=== PATIENT | female | born 1960 | race Caucasian/White ===

== ENCOUNTER → 2017-10-10 10:40 | Outpatient (CLI) | payer OTHER, SELFPAY ==
[2017-10-10 12:48] LABS: Calcium 9.5 mg/dL (8.4-10.2); Phosphorous 3.8 mg/dL (2.5-4.5)
[2017-10-10 13:05] LABS: Vitamin D 25 Hydroxy (D3) 59.8 ng/mL (30.0-100.0)
[2017-10-14 13:03] LABS: Parathyroid Hormone Int 23 pg/mL (14-64)
== END ==
PROVIDERS: PCP Physician Assistant; Visit Provider Internal Medicine Endocrinology, Diabetes & Metabolism
DX: E21.3 Hyperparathyroidism, unspecified (principal)
CPT/HCPCS: 36415; 82306; 82310; 83970; 84100

== ENCOUNTER 2020-03-08 01:43 | Observation (INO) | payer OTHER, SELFPAY ==
[2020-03-08] VITALS (21 sets, daily range): BP systolic 111–154; BP diastolic 65–83; PULSE 78–92; RESP 11–43; TEMP 36.3–37.3; O2SAT 97–100; BMI 20.7; BMI 21.6
--- NOTE | 2020-03-08 01:59 | ED_ITS ---
HPI - Overdose General Chief Complaint: Toxicology Problem Stated Complaint: Overdose Time Seen by Provider: 03/08/20 01:45 Source: patient and EMS Mode of arrival: EMS Limitations: no limitations History of Present Illness HPI Narrative: 59-year-old female former smoker with history of depression, chronic pain and prior suicide attempt presents by EMS and a chief complaint of suicidal ideation with attempt. The patient's family was attempting to discuss her alcohol and mental health problems in a sort of intervention tonight and it was poorly received. Per the police affit lydia / [place] she became upset and felt that her family did not lover her, did not respect her, and did not realize how much she has done for them. PD were called at 2329 to intervene. They left after the initial interaction but were called back at 0107 because the patient had made a suicide attempt and locked herself in her room. Somewhere between midnight and 12 30 this evening (nearly 2 hours ago) she took upwards of 70 pills of gabapentin 100 mg nearly all at once and attempt to commit suicide. She had a small amount of wine earlier in the night but denies the ingestion of other medications. She had a suicide attempt about 3 years ago. She lives at home with her . She does not have a therapist, psychologist or psy chiatrist. She is currently feeling a bit somnolent but largely okay. complaint: intentional overdose Onset (ago): hour(s) Intent: suicide attempt Associated symptoms: depression Treatments Prior to Arrival: none Related Data Home Medications Medication Instructions Recorded Confirmed [GUAIFENESIN ER] 2,400 - 3,600 mg PO PRN PRN #0 06/30/17 03/01/20 [COMPLETE OMEGA] 1 cap PO QDAY #0 09/21/17 03/01/20 [DHEA] 100 mg PO QDAY #0 09/21/17 03/01/20 [FREE AMINOS] 1 cap PO QDAY #0 09/21/17 03/01/20 [HUMANOFORT] 100 mg PO QDAY #0 09/21/17 03/01/20 [IODURAL] 50 mg PO QDAY #0 09/21/17 03/01/20 [L-TRYPTOPHAN] 1.6 mg PO QDAY #0 09/21/17 03/01/20 [PREGNENOLONE] 100 mg PO QDAY #0 09/21/17 03/01/20 [VITAMIN B COMPLEX] 1 tab PO QDAY #0 09/21/17 03/01/20 diphenhydramine HCl 25 mg capsule 50 mg PO BEDTIME cap 03/01/20 03/01/20 Previous Rx's Medication Instructions Recorded [ESTRO GEL] 0.06 % TOPICAL QDAY #150 gm 06/30/17 bupropion HCl 150 mg tablet,12 hr 150 mg PO BID #180 tab 03/01/20 sustained-release estradiol 0.1 mg/24 hr semiweekly See Rx Instructions .ROUTE 03/01/20 transdermal patch .COMPLEX #24 each gabapentin 100 mg capsule 100 mg PO TID #270 cap 03/01/20 progesterone micronized 100 mg 100 mg PO HS #90 cap 03/01/20 capsule valacyclovir 500 mg tablet 500 mg PO BID #180 tab 03/01/20 venlafaxine 150 mg 150 mg PO DAILY #90 cap 03/01/20 capsule,extended release 24 hr Allergies Allergy/AdvReac Type Severity Reaction Status Date / Time cephalexin [CEPHALEXIN] AdvReac Mild HALLUCINATI Verified 07/13/18 13:50 ONS Review of Systems Constitutional Constitutional: Denies chills, Denies fatigue, Denies fever(s), Denies frequent falls, Denies lethargy and Denies weakness Comments: Tired Eyes Eyes: Denies change in vision, Denies eye discharge, Denies irritation and Denies loss of vision ENT Ears, Nose, Mouth, and Throat: Denies change in voice, Denies dizziness, Denies neck pain, Denies sore throat and Denies throat swelling Cardiovascular Cardiovascular: Denies chest pain, Denies irregular heart rhythm, Denies lightheadedness, Denies palpitations, Denies dyspnea, Denies dyspnea on exertion and Denies orthopnea Respiratory Respiratory: Denies cough, Denies dyspnea, Denies dyspnea on exertion and Denies wheezing Gastrointestinal Gastrointestinal: Denies abdominal pain, Denies change in bowel habits, Denies diarrhea, Denies nausea and Denies vomiting Musculoskeletal Musculoskeletal: Denies neck pain and Denies numbness Integumentary/Breasts Skin/Breast: Denies pruritus, Denies erythema, Denies rash and Denies wounds Neurologic Neurologic: Denies behavioral changes, Denies confusion, Denies dizziness, Denies frequent falls, Denies loss of vision, Denies numbness and Denies weakness Psychiatric Psychiatric: Denies anxiety, Denies behavioral changes, Denies confusion, Denies depression, Denies homicidal ideation and Denies suicidal ideation Endocrine Endocrine: Denies fatigue, Denies flushing and Denies palpitations Hematologic/Lymphatic Hematologic/Lymphatic: Denies easy bruising Allergic/Immunologic Allergic/Immunologic: Denies urticaria, Denies throat swelling and Denies wh eezing Patient History Medical History Depression (Chronic) Fibromyalgia (Chronic) Fibromyalgia (Acute) History of suicide attempt (Chronic) Other insomnia (Chronic) Sleep apnea (Acute) Surgical History History of breast augmentation Status post delivery Status post hysterectomy Status post tonsillectomy and adenoidectomy Family History Mother History of rheumatoid arthritis History of hypertension History of hypothyroidism Social History Smoking Status: Former smoker (quit in 2017) Smoking Status: Former smoker (quit in 2017) alcohol intake frequency: a few times a week Substance Use Type: does not use Exam Narrative Exam Narrative: GENERAL: [59] year old patient appears stated age. Well- nourished, well-developed patient, in mild distress. HEAD: Atraumatic. Normocephalic. EYES: Pupils equal round and reactive. Extraocular motions intact. No scleral icterus. No injection or drainage. ENT: Nose without bleeding, purulent drainage. Throat without erythema, tonsillar hypertrophy or exudate. Airway patent. NECK: Trachea midline. Non tender CARDIOVASCULAR: Regular rate and rhythm without murmurs, gallops, or rubs. RESPIRATORY: Clear to auscultation. Breath sounds equal bilaterally. No wheezes, rales, or rhonchi. GASTROINTESTINAL: Abdomen soft, non-tender, nondistended. EXTREMITIES: No edema or joint tenderness. BACK: Nontender without deformity or crepitance. No flank tenderness. NEURO: AOx3. SKIN: No rash or erythema of visible areas Initial Vital Signs Initial Vital Signs: Vital Signs Temperature 98.7 F 03/08/20 01:40 Pulse Rate 85 03/08/20 01:40 Respiratory Rate 15 10/22/20 01:40 Blood Pressure 137/79 03/08/20 01:40 Pulse Oximetry 99 03/08/20 01:40 Course Orders Ordered: ED Orders 03/08/20 EKG-12 Lead Stat 03/08/20 02:15 Acetaminophen Stat Complete Blood Count AUTO DIFF Stat Comprehensive Metabolic Panel Stat Ethanol (ETOH) Stat Hepatic (Liver) Panel Stat Lactate (Lactic Acid) Stat Salicylate Stat 03/08/20 02:35 Urine Drug Screen, Rapid Stat 03/08/20 03:30 COVID19 -ED/INPAT/OR/L&D Stat Sodium Chloride (Normal Saline 0.9%) 1,000 mls @ 150 mls/hr IV CONT RIZWAN Last Admin: 03/08/20 02:48 Dose: 150 mls/hr Documented by: ALESIA Discontinued Medications Charcoal/Sorbitol (Actidose) 50 gm PO NOW ONE Stop: 03/08/20 01:37 Last Admin: 03/08/20 03:06 Dose: Not Given Documented by: JONATHAN Consultations Consultation #1: Call to poison Control. Given her current ingestion of gabapentin 7100 mg and the possible involvement of venlafaxine and bupropion they recommend observation for 24 hours to monitor for QT prolongation, somnolence and possibly seizures. After which she can be medically cleared and assessed by mental health. They agree the patient is outside of the window for charcoal administration and recommend supportive care in the meantime. Vital Signs Vital signs: Vital Signs - 8 hr 03/08/20 01:40 03/08/20 02:09 03/08/20 02:15 Temperature 98.7 F Pulse Rate 85 85 83 Respiratory Rate 15 11 L 13 Blood Pressure 137/79 137/79 137/83 Pulse Oximetry 99 100 100 03/08/20 02:30 03/08/20 02:39 03/08/20 02:45 Temperature Pulse Rate 82 84 85 Respiratory Rate 21 18 14 Blood Pressure 131/81 135/79 131/81 Pulse Oximetry 100 100 99 03/08/20 03:00 03/08/20 03:01 03/08/20 03:16 Temperature Pulse Rate 86 87 92 H Respiratory Rate 31 H 28 H 40 H Blood Pressure 135/66 137/70 Pulse Oximetry 100 99 99 MDM - Overdose Lab Data Result diagrams: 03/08/20 02:15 03/08/20 02:15 Labs: Lab Results 03/08/20 03/08/20 03/08/20 Range/Units 02:15 02:15 02:15 WBC 4.6 (4.5-11.0) X10^3/uL RBC 3.57 L (4.0-5.2) X10^6/uL Hgb 12.4 (12.0-16.0) g/dL Hct 37.2 (36-46) % MCV 104.2 H (80-100) fL MCH 34.6 H (26-34) PG MCHC 33.2 (30-36) % RDW 14.0 (11.6-14.8) % Plt Count 264 (150-400) X10^3/uL Neut % (Auto) 52.8 (50-75) % Lymph % (Auto) 21.4 L (25-40) % [place] % (Auto) 16.8 H (3-14) % Eos % (Auto) 7.9 H (2-4) % Baso % (Auto) 1.1 (0-2) % Neut # (Auto) 2400 (3937-6254) /uL Lymph # (Auto) 1000 L (0902-9248) /uL [place] # (Auto) 800 (0-900) /uL Eos # (Auto) 400 (0-450) /uL Baso # (Auto) 100 (0-100) /uL Sodium 140 (137-145) mmol/L Potassium 4.2 (3.4-5.1) mmol/L Chloride 106 (98-107) mmol/L Carbon Dioxide 24 (22-32) mmol/L BUN 9 (7-17) mg/dL Creatinine 0.82 (0.52-1.04) mg/dL Estimated GFR > 60.0 (>60) mL/min BUN/Creatinine Ratio 11.0 (6-22) Glucose 105 (80-110) mg/dL Lactate 1.0 (0.7-2.1) mmol/L Calcium 8.7 (8.4-10.2) mg/dL Total Bilirubin 0.3 (0.2-1.3) mg/dL Conjugated Bilirubin 0.0 (0.0-0.3) md/dL Unconjugated Bilirubin 0.0 (0.0-1.1) mg/dL AST 51 H (14-36) IU/L ALT 39 H (<35) IU/L Alkaline Phosphatase 56 (38-126) U/L Total Protein 7.4 (6.3-8.2) g/dL Albumin 4.5 (3.5-5.0) g/dL Globulin 2.9 (1.7-4.1) g/dL Albumin/Globulin Ratio 1.6 (1.0-2.8) Salicylates < 1.0 (<20) mg/dL U Opiates 300ng/mL cut (Negative) Ur Oxycodone Screen (Negative) Urine Methadone Screen (Negative) Acetaminophen < 10 L (10-30) ug/mL Ur Barbiturates Screen (Negative) U Tricyclic Antidepress (Negative) Ur Phencyclidine Scrn (Negative) Ur Amphetamines Screen (Negative) U Methamphetamines Scrn (Negative) Ur MDMA Scrn (Ecstasy) (Negative) U Benzodiazepines Scrn (Negative) Urine Cocaine Screen (Negative) U Marijuana (THC) Screen (Negative) Ethyl Alcohol 168 H ( - 10) mg/dL 03/08/20 Range/Units 02:35 WBC (4.5-11.0) X10^3/uL RBC (4.0-5.2) X10^6/uL Hgb (12.0-16.0) g/dL Hct (36-46) % MCV (80-100) fL MCH (26-34) PG MCHC (30-36) % RDW (11.6-14.8) % Plt Count (150-400) X10^3/uL Neut % (Auto) (50-75) % Lymph % (Auto) (25-40) % [place] % (Auto) (3-14) % Eos % (Auto) (2-4) % Baso % (Auto) (0-2) % Neut # (Auto) (5814-9116) /uL Lymph # (Auto) (4133-1153) /uL [place] # (Auto) (0-900) /uL Eos # (Auto) (0-450) /uL Baso # (Auto) (0-100) /uL Sodium (137-145) mmol/L Potassium (3.4-5.1) mmol/L Chloride (98-107) mmol/L Carbon Dioxide (22-32) mmol/L BUN (7-17) mg/dL Creatinine (0.52-1.04) mg/dL Estimated GFR (>60) mL/min BUN/Creatinine Ratio (6-22) Glucose (80-110) mg/dL Lactate (0.7-2.1) mmol/L Calcium (8.4-10.2) mg/dL Total Bilirubin (0.2-1.3) mg/dL Conjugated Bilirubin (0.0-0.3) md/dL Unconjugated Bilirubin (0.0-1.1) mg/dL AST (14-36) IU/L ALT (<35) IU/L Alkaline Phosphatase (38-126) U/L Total Protein (6.3-8.2) g/dL Albumin (3.5-5.0) g/dL Globulin (1.7-4.1) g/dL Albumin/Globulin Ratio (1.0-2.8) Salicylates (<20) mg/dL U Opiates 300ng/mL cut Negative (Negative) Ur Oxycodone Screen Negative (Negative) Urine Methadone Screen Negative (Negative) Acetaminophen (10-30) ug/mL Ur Barbiturates Screen Negative (Negative) U Tricyclic Antidepress Negative (Negative) Ur Phencyclidine Scrn Negative (Negative) Ur Amphetamines Screen Negative (Negative) U Methamphetamines Scrn Negative (Negative) Ur MDMA Scrn (Ecstasy) Negative (Negative) U Benzodiazepines Scrn Negative (Negative) Urine Cocaine Screen Negative (Negative) U Marijuana (THC) Screen Negative (Negative) Ethyl Alcohol ( - 10) mg/dL Discharge Plan Departure Patient Disposition: Admitted As Inpatient Clinical Impression: Gabapentin overdose, Suicide attempt Referrals: Melany Blanco ARNP [Primary Care Provider] -
[2020-03-08 02:38] LABS: Add Manual Diff / Slide Review NO; Basophils Absolute Auto 100 /uL (0-100); Basophils Percent Auto 1.1 % (0-2); Eosinophils Absolute Auto 400 /uL (0-450); Eosinophils Percent Auto 7.9 % (2-4); Hematocrit 37.2 % (36-46); Hemoglobin 12.4 g/dL (12.0-16.0); Lymphocytes Absolute Auto 1000 /uL (1100-4500); Lymphocytes Percent Auto 21.4 % (25-40); Mean Corpuscular HGB Conc 33.2 % (30-36); Mean Corpuscular Hemoglobin 34.6 PG (26-34); Mean Corpuscular Volume 104.2 fL (80-100); Monocytes Absolute Auto 800 /uL (0-900); Monocytes Percent Auto 16.8 % (3-14); Neutrophils Absolute Auto 2400 /uL (1500-7000); Neutrophils Percent Auto 52.8 % (50-75); Platelet Count 264 X10^3/uL (150-400); Red Blood Cell Count 3.57 X10^6/uL (4.0-5.2); White Blood Cell Count 4.6 X10^3/uL (4.5-11.0)
--- NOTE | 2020-03-08 02:44 | PC.NURSE ---
Janette Thurman on Pt 1:1 at 0230. Pt is very talkative and lying on sloane.
[2020-03-08 02:48] LABS: Acetaminophen < 10 ug/mL (10-30); Alanine Aminotransferase 39 IU/L (<35); Albumin 4.5 g/dL (3.5-5.0); Albumin Globulin Ratio 1.6 (1.0-2.8); Alkaline Phosphatase 56 U/L (38-126); Aspartate Aminotransferase 51 IU/L (14-36); Bilirubin Total 0.3 mg/dL (0.2-1.3); Blood Urea Nitrogen 9 mg/dL (7-17); Calcium 8.7 mg/dL (8.4-10.2); Carbon Dioxide 24 mmol/L (22-32); Chloride 106 mmol/L (98-107); Estimated Glomerular Filt Rate > 60.0 mL/min (>60); Ethanol (ETOH) 168 mg/dL; Globulin 2.9 g/dL (1.7-4.1); Glucose 105 mg/dL (80-110); HEMOLYSIS < 15 (0-50); Potassium 4.2 mmol/L (3.4-5.1); Salicylate < 1.0 mg/dL (<20); Sodium 140 mmol/L (137-145); Total Protein 7.4 g/dL (6.3-8.2)
[2020-03-08] MEDS: SODIUM CHLORIDE 0.9% 1,000 ML 150 ML IV (02:48)
--- NOTE | 2020-03-08 02:57 | PC.NURSE ---
Pt was brought in by medics. upon arrival patient stating, I don't need to be here. Let me just go home and go to bed I am 59 and why do I have to continue to live I shouldn't have told anyone. Pt has been agreeable with care, allowing Iv to be started. When asked if this was planned, she said it was spur of the moment after having an argument with spouse and son.
[2020-03-08 03:04] LABS: UR Morphine/Opiate cutoff 300 Negative (Negative); Ur Creatinine Normal (Normal); Ur Specific Gravity Normal (Normal); Urine Amphetamines Negative (Negative); Urine Barbiturates Negative (Negative); Urine Benzodiazepines Negative (Negative); Urine Cocaine Negative (Negative); Urine MDMA Negative (Negative); Urine Methadone Negative (Negative); Urine Methamphetamines Negative (Negative); Urine Oxycodone Negative (Negative); Urine Phencyclidine Negative (Negative); Urine Tetrahydrocannabinol Negative (Negative); Urine Tricyclic Antidepressant Negative (Negative); Urine pH Normal (Normal)
[2020-03-08 03:51] LABS: COVID19 -Nasal RAPID Negative (Negative)
--- NOTE | 2020-03-08 04:13 | PC.NURSE ---
Pt being transfered upstairs, End watch in ED
[2020-03-08] MEDS: SODIUM CHLORIDE 0.9% 1,000 ML 100 ML IV (04:30)
--- NOTE | 2020-03-08 04:46 | PM.HP.1 ---
History of Present Illness History of Present Illness Date Patient Seen: 03/08/20 Time Patient Seen: 04:29 Chief complaint: Overdose Narrative: Mr. felicity najera is a 59-year-old female patient with a past medical history significant for depression with a previous suicide attempt (Sep, 2017), fibromyalgia, insomnia, obstructive sleep apnea with CPAP who presents to the ER following intentional overdose. Apparently tonight please for called to the home at approximately 11:30 p.m. after the patient became upset following family discussion regarding alcohol. Reportedly the patient drinks a bottle of wine daily and consumes wine earlier tonight. Patient subsequently proceeded to take approximately 70 gabapentin 100 mg tablets between midnight and 0030. Please recall again to the house at 1:07 a.m. in response to suicide attempt. Patient states that she feels her family does not appreciate her nor all that she has done for them. She states she lost her which she is unhappy in her marriage there is no intimacy. She makes repeated statements of helplessness and hopelessness and states she is unhappy and does not want to continue living. She states frustration that her overdose was not successful, that all she wanted to was go to sleep and be done with it. Patient described 3-4 days ago having cold symptoms with runny nose and scratchy throat and mild cough but denies complaints of fevers or chills. She denies chest pain or palpitations and has no exertional dyspnea, shortness of breath or wheezing stating she runs several times weekly. She denies complaints of abdominal pain with no nausea or vomiting and has no diarrhea but does have intermittent constipation. She denies urinary symptoms of frequency urgency burning or hematuria. She endorses a history of fibromyalgia which she states she has under control with supplements. Patient History Medical History Depression (Chronic) Fibromyalgia (Chronic) Fibromyalgia (Acute) History of suicide attempt (Chronic) Other insomnia (Chronic) Sleep apnea (Acute) Surgical History (Updated 03/08/20 @ 05:00 by PRADEEP Klein) History of breast augmentation History of sinus surgery (Acute) Status post delivery Status post hysterectomy Status post tonsillectomy and adenoidectomy Family & Social History Family History (Updated 03/08/20 @ 05:12 by PRADEEP Klein) Mother History of rheumatoid arthritis History of hypertension History of hypothyroidism Father Medical history unknown Safety & Behavioral: Feels Safe in Current Yes Environment Suicidal Ideation Description Vague Suicide Plan Description Vague Tobacco & Substance use: Smoking Status Former smoker alcohol intake frequency a few times a week Substance Use Type other Meds Home Medications and Allergies Home Medications Medication Instructions Recorded Confirmed Type [GUAIFENESIN ER] 2,400 - 3,600 mg PO PRN PRN #0 06/30/17 03/01/20 History [COMPLETE OMEGA] 1 cap PO QDAY #0 09/21/17 03/01/20 History [DHEA] 100 mg PO QDAY #0 09/21/17 03/01/20 History [FREE AMINOS] 1 cap PO QDAY #0 09/21/17 03/01/20 History [HUMANOFORT] 100 mg PO QDAY #0 09/21/17 03/01/20 History [IODURAL] 50 mg PO QDAY #0 09/21/17 03/01/20 History [L-TRYPTOPHAN] 1.6 mg PO QDAY #0 09/21/17 03/01/20 History [PREGNENOLONE] 100 mg PO QDAY #0 09/21/17 03/01/20 History [VITAMIN B COMPLEX] 1 tab PO QDAY #0 09/21/17 03/01/20 History bupropion HCl 150 mg tablet,12 hr 150 mg PO BID #180 tab 03/01/20 03/01/20 Rx sustained-release diphenhydramine HCl 25 mg capsule 50 mg PO BEDTIME cap 03/01/20 03/01/20 History estradiol 0.1 mg/24 hr semiweekly See Rx Instructions .ROUTE 03/01/20 03/01/20 Rx transdermal patch .COMPLEX #24 each progesterone micronized 100 mg 100 mg PO HS #90 cap 03/01/20 03/01/20 Rx capsule valacyclovir 500 mg tablet 500 mg PO BID #180 tab 03/01/20 03/01/20 Rx venlafaxine 150 mg 150 mg PO DAILY #90 cap 03/01/20 03/01/20 Rx capsule,extended release 24 hr Allergies Allergy/AdvReac Type Severity Reaction Status Date / Time cephalexin [CEPHALEXIN] AdvReac Mild HALLUCINATI Verified 07/13/18 13:50 ONS Review of Systems Review of Systems ROS: Yes All systems reviewed with the patient and are negative except as otherwise documented Exam Vital Signs (past 8 hours): - 03/08/20 01:40 03/08/20 02:09 03/08/20 02:15 Temperature 98.7 F Pulse Rate 85 85 83 Respiratory Rate 15 11 L 13 Blood Pressure 137/79 137/79 137/83 Pulse Oximetry 99 100 100 03/08/20 02:30 03/08/20 02:39 03/08/20 02:45 Temperature Pulse Rate 82 84 85 Respiratory Rate 21 18 14 Blood Pressure 131/81 135/79 131/81 Pulse Oximetry 100 100 99 03/08/20 03:00 03/08/20 03:01 03/08/20 03:16 Temperature Pulse Rate 86 87 92 H Respiratory Rate 31 H 28 H 40 H Blood Pressure 135/66 137/70 Pulse Oximetry 100 99 99 03/08/20 03:30 03/08/20 03:45 03/08/20 04:00 Temperature Pulse Rate 89 80 79 Respiratory Rate 43 H 12 12 Blood Pressure 129/67 123/73 116/72 Pulse Oximetry 99 100 100 03/08/20 04:12 03/08/20 04:15 03/08/20 04:33 Temperature 97.6 F Pulse Rate 81 89 Respiratory Rate 16 16 Blood Pressure 111/68 121/65 Pulse Oximetry 97 99 Oxygen Delivery Method Room Air Narrative Exam Narrative: GENERAL APPEARANCE: well developed, well nourished, in no acute distress. HEENT: Normocephalic, PERRLA, conjunctiva mildly injected, EOMs intact bilateral nystagmus, no sinus, mucous membranes are moist and pink without lesions or exudate. NECK/THYROID: neck supple, no JVD, no carotid bruit, no thyromegaly, trachea midline. LYMPH NODES: no cervical or supraclavicular lymphadenopathy. SKIN: [place], warm and dry, no visible lesions, rashes, ulcerations or petechiae. HEART: regular rate and rhythm, S1-S2, no murmur, no rubs or gallops, brisk capillary refill, no edema LUNGS: clear to auscultation bilaterally, no coarseness crackles or wheezing, no cough present CHEST: Symmetrical movement, no accessory muscle use, good tidal volume. ABDOMEN: Soft, no distention, no abdominal tenderness, no guarding or peritoneal signs, no organomegaly, no flank or suprapubic tenderness, active bowel tones. BACK: Normal curvature, nontender to palpation, no CVA tenderness on percussion EXTREMITIES: moves all extremities, strength is 5/5 and symmetrical, no deformities or joint effusions. NEUROLOGIC: AAO x4, no focal neurologic deficits, cranial nerves II-XII grossly intact, sensation intact to light touch PSYCH: Hyperverbal, pressured speech, tearful, good eye contact, tangential thought process, cooperative, stable behavior, statements confirming suicidal ideation and attempt Objective Labs Result Diagrams: 03/08/20 04:55 03/08/20 04:55 Labs: Laboratory Results - last 24 hr 03/08/20 03/08/20 03/08/20 02:15 02:15 02:15 WBC 4.6 RBC 3.57 L Hgb 12.4 Hct 37.2 MCV 104.2 H MCH 34.6 H MCHC 33.2 RDW 14.0 Plt Count 264 Neut % (Auto) 52.8 Lymph % (Auto) 21.4 L [place] % (Auto) 16.8 H Eos % (Auto) 7.9 H Baso % (Auto) 1.1 Neut # (Auto) 2400 Lymph # (Auto) 1000 L [place] # (Auto) 800 Eos # (Auto) 400 Baso # (Auto) 100 Sodium 140 Potassium 4.2 Chloride 106 Carbon Dioxide 24 BUN 9 Creatinine 0.82 Estimated GFR > 60.0 BUN/Creatinine Ratio 11.0 Glucose 105 Lactate 1.0 Calcium 8.7 Total Bilirubin 0.3 Conjugated Bilirubin 0.0 Unconjugated Bilirubin 0.0 AST 51 H ALT 39 H Alkaline Phosphatase 56 Total Protein 7.4 Albumin 4.5 Globulin 2.9 Albumin/Globulin Ratio 1.6 Salicylates < 1.0 U Opiates 300ng/mL cut Ur Oxycodone Screen Urine Methadone Screen Acetaminophen < 10 L Ur Barbiturates Screen U Tricyclic Antidepress Ur Phencyclidine Scrn Ur Amphetamines Screen U Methamphetamines Scrn Ur MDMA Scrn (Ecstasy) U Benzodiazepines Scrn Urine Cocaine Screen U Marijuana (THC) Screen Ethyl Alcohol 168 H COVID-19 PCR 03/08/20 03/08/20 02:35 02:42 WBC RBC Hgb Hct MCV MCH MCHC RDW Plt Count Neut % (Auto) Lymph % (Auto) [place] % (Auto) Eos % (Auto) Baso % (Auto) Neut # (Auto) Lymph # (Auto) [place] # (Auto) Eos # (Auto) Baso # (Auto) Sodium Potassium Chloride Carbon Dioxide BUN Creatinine Estimated GFR BUN/Creatinine Ratio Glucose Lactate Calcium Total Bilirubin Conjugated Bilirubin Unconjugated Bilirubin AST ALT Alkaline Phosphatase Total Protein Albumin Globulin Albumin/Globulin Ratio Salicylates U Opiates 300ng/mL cut Negative Ur Oxycodone Screen Negative Urine Methadone Screen Negative Acetaminophen Ur Barbiturates Screen Negative U Tricyclic Antidepress Negative Ur Phencyclidine Scrn Negative Ur Amphetamines Screen Negative U Methamphetamines Scrn Negative Ur MDMA Scrn (Ecstasy) Negative U Benzodiazepines Scrn Negative Urine Cocaine Screen Negative U Marijuana (THC) Screen Negative Ethyl Alcohol COVID-19 PCR Negative Assessment & Plan Assessment & Plan narrative: This is a 59-year-old female was brought to the ER by EMS following attempted suicide by ingestion of 70 capsules of gabapentin approximately 2 hours prior to arrival. This is the patient's 2nd suicide attempt 1st being in September of 2017. 1. Attempted suicide by overdose on gabapentin, acute, present on admission, active. -precipitating event was family interventions surrounding alcohol consumption and following family discussion patient felt none appreciated and on love with hopelessness and helplessness. -patient admitted to taking overdose of gabapentin, by pill count the patient consumes 71 100 mg pills, time of ingestion was between midnight and 12:30 a.m. -poison control was contacted regarding the overdose, the patient is outside the window for therapeutic intervention/charcoal-sorbitol administration. Recommended admission for cardiac monitoring for 24 hours. -it is questioned whether the patient took additional venlafaxine or bupropion. By Bill count all medication is accounted for. -ordered suicide precautions and seizure precautions. -continuous cardiac monitoring. 2. 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 -patient with triggering events as described above that the patient states similar to events and or feelings experienced at the time of prior suicide attempt in September 2017. -will continue routine home medication of venlafaxine 150 mg daily and bupropion 150 mg 12 hour sustained release b.i.d.. 3. Alcohol abuse, chronic, present on admission, stable -patient's reports patient consumes 1 bottle of wine nightly -blood alcohol on admission is 168, urine tox screen is otherwise negative. -no evidence of alcohol withdrawals and no history of withdrawal symptoms or seizures. 4. Fibromyalgia, chronic, stable -patient describes fibromyalgia as ?under control? with uses supplements. 5. Obstructive sleep apnea using CPAP, chronic, stable -patient reports using CPAP which indicates 10 apneic pauses per hour per patient report. -the patient is referred to [facility] for further evaluation and sleep study. VTE prophylaxis: Enoxaparin IV fluid: Normal saline 100 cc/hour Diet: Regular Code status: Full code, patient designates her be surrogate decision maker. The patient is admitted to the hospital following suicide attempt with ingestion of 70 capsules of 100 mg. The patient is admitted observation status pending formal psychiatric evaluation when med clear. Scores GCS [place] coma scale eye opening: Spontaneous [place] coma scale verbal response: Orientated [place] coma scale motor response: Obey commands [place] coma scale total score: 15
[2020-03-08 05:22] LABS: Add Manual Diff / Slide Review NO; Basophils Absolute Auto 100 /uL (0-100); Basophils Percent Auto 1.3 % (0-2); Eosinophils Absolute Auto 300 /uL (0-450); Eosinophils Percent Auto 7.1 % (2-4); Hematocrit 38.5 % (36-46); Hemoglobin 12.8 g/dL (12.0-16.0); Lymphocytes Absolute Auto 1100 /uL (1100-4500); Lymphocytes Percent Auto 22.5 % (25-40); Mean Corpuscular HGB Conc 33.3 % (30-36); Mean Corpuscular Hemoglobin 34.9 PG (26-34); Mean Corpuscular Volume 104.8 fL (80-100); Monocytes Absolute Auto 800 /uL (0-900); Monocytes Percent Auto 15.7 % (3-14); Neutrophils Absolute Auto 2600 /uL (1500-7000); Neutrophils Percent Auto 53.4 % (50-75); Platelet Count 277 X10^3/uL (150-400); Red Blood Cell Count 3.67 X10^6/uL (4.0-5.2); Red Cell Distribution Width 14.1 % (11.6-14.8); White Blood Cell Count 4.8 X10^3/uL (4.5-11.0)
--- NOTE | 2020-03-08 05:23 | PC.NURSE ---
Pt admitted to ICU for observation. Nursing staff with Pt in . Sitter on watch at nurse station
[2020-03-08 05:29] LABS: BUN Creatinine Ratio 12.7 (6-22); Blood Urea Nitrogen 9 mg/dL (7-17); Calcium 8.9 mg/dL (8.4-10.2); Carbon Dioxide 29 mmol/L (22-32); Chloride 109 mmol/L (98-107); Estimated Glomerular Filt Rate > 60.0 mL/min (>60); Glucose 104 mg/dL (80-110); HEMOLYSIS < 15 (0-50); Magnesium 2.3 mg/dL (1.6-2.3); Sodium 143 mmol/L (137-145)
--- NOTE | 2020-03-08 06:25 | PC.ADMIT ---
[email or web address] Admission Note: The patient,Sharon Gonzalez,59 y/o, was given written information regarding hospital policies, unit procedures and contact persons. Patient's smoking status: Former smoker. Vital Signs - 8 hr 03/08/20 01:40 03/08/20 02:09 03/08/20 02:15 Temperature 98.7 F Pulse Rate 85 85 83 Respiratory Rate 15 11 L 13 Blood Pressure 137/79 137/79 137/83 Pulse Oximetry 99 100 100 03/08/20 02:30 03/08/20 02:39 03/08/20 02:45 Temperature Pulse Rate 82 84 85 Respiratory Rate 21 18 14 Blood Pressure 131/81 135/79 131/81 Pulse Oximetry 100 100 99 03/08/20 03:00 03/08/20 03:01 03/08/20 03:16 Temperature Pulse Rate 86 87 92 H Respiratory Rate 31 H 28 H 40 H Blood Pressure 135/66 137/70 Pulse Oximetry 100 99 99 03/08/20 03:30 03/08/20 03:45 03/08/20 04:00 Temperature Pulse Rate 89 80 79 Respiratory Rate 43 H 12 12 Blood Pressure 129/67 123/73 116/72 Pulse Oximetry 99 100 100 03/08/20 04:12 03/08/20 04:15 03/08/20 04:33 Temperature 97.6 F Pulse Rate 81 89 Respiratory Rate 16 16 Blood Pressure 111/68 121/65 Pulse Oximetry 97 99 Patient arrived to unit at approximately 0430 via stretcher from ED. VSS, afebrile in NAD. Patient awake, alert and conversing with staff. Denies SI but reports she is tired and doesn't want to do this anymore. When asked to clarify she says life. No plan - states I don't want to hurt myself, I am just not happy. Bradly Shelton SUPERVISOR DRILLING [employer]OTING at bedside to eval. Seizure precautions in place. QTC 413. Sp02 97% RA. Belongings removed from room upon arrival. Oriented to room, call light and plan of care. Verbalized understanding. Stephan, patient paediatric thoracic physician providing 1:1 safety monitoring. 0625 [place] Pharmacist from [facility] called for update on patient's condition. States they will touch base later this evening for follow up.
--- NOTE | 2020-03-08 12:38 | CM.SWNOTE ---
TOWER SUPERVISOR Note Patient discussed in morning multidisciplinary rounds; there is potential for CHECO; likely medically cleared tomorrow Thursday03.08.20. Reviewed chart, asked that Dr Reno request psychiatric consult today for assist in assessment and recommendation on dispo. Psych Clinical consult will also assist in CHECO process if patient is not a voluntary candidate for inpatient psychiatric care. Following closely, will await Psychiatric consult/input ...if available today or tomorrow. ROSY
--- NOTE | 2020-03-08 14:36 | PC.NURSE ---
Pt has been AO x4 this shift. Denies SI but expresses anger toward her son for calling EMS. He should have just let me go to sleep. She is disappointed that she was not successful with this attempt. She reports previous attempt by medication OD. She is emotionally labile and demonstrates clear, tangential speech. She has difficulty staying on topic to answer questions despite redirection. She is intermittently tearful when speaking about her relationship with her . There is just no intimacy. We are like roommates. She denies feeling unsafe at home. Denies domestic violence/abuse. She expresses anger toward her family and feels that they don't appreciate her. She states that they take issue with her alcohol intake. She reports that she has had ongoing suicidal thoughts starting at a young age as well as longstanding depression. She states that she has worked with a counselor in the past for this and that was helpful but does not see anyone currently. She agrees not to harm herself while she is in the hospital. She has had stable VS and SR (normal QT) on bedside monitor. She is on RA with SPO2 100%. Her lungs are clear. She is not currently having any pain. She is up with supervision (per facility policy) to the BR to void. Her gait is steady. She was able to independently shower and tend to her hygiene needs this AM. Plan is for 24hr obs and then evaluate for safe discharge plan. 1:1 sitter at bedside for safety.
--- NOTE | 2020-03-08 17:30 | P.CONS_ITS ---
History of Present Illness Consult details Date Patient Seen: 03/08/20 Time Patient Seen: 16:45 Chief complaint: Overdose Reason for consult: Suicide attempt via overdose Requesting provider: Rush Reno Narrative: This is the 1st psychiatric evaluation for this 59-year-old female who was brought in by police on a long-term following a suicide attempt with gabapentin after an altercation with her family. The patient reports a long history of depression that dates back to her teen years. However, she was not treated until her 40s when she sought help from her primary care providers for difficulty with hormones. At that time, she reported significant symptoms of depressed mood, anhedonia, and stated that she could not stop crying. She also apparently had suicidal ideation at that time but never went through with that. She was treated with various antidepressants including paroxetine, Lexapro, and she also admits to drinking more during that time period She apparently started to get better when she was in her 50s and her hormones were treated adequately but then she contracted fibromyalgia and reports having severe difficulties with it. She also reports drinking regularly at that point as well. She was treated with Lyrica and eventually also treated with desvenlafaxine reporting significant improvement in her overall mood. Just as the family was doing better, they had a severe financial crisis when she was age 57 which resulted in significant loss of savings and financial assets and a drastic reduction in their lifestyle. Had to sell their home in a [facility] and [place], [place] and moved to [place] where they had a 2nd home. The patient apparently continued to drink and has had difficulty in conflicts with various members of her family throughout this time. At 1 point a couple of years ago she decided to stop talking to her mother and stated that this diminished a significant source of stress in her life. She reports that she and her are somewhat estranged while living in the same house. They have their own bedrooms and have not been intimate in many years. In addition, she also reports significant conflict with all of the members of her family around her drinking. Apparently they have asked her to stop drinking and get help for alcohol many times. On the day of her admission, her family was visiting and she had been drinking and became embroiled in an altercation with her son. Apparently, the family was attempting some sort of alcohol intervention in order to try to get the patient to get help. She decided at that point that she wanted to take a drive to look out point and just be alone. Because the fact that they knew she was drunk they tried to prevent her ultimately calling police who responded and encouraged her to remain home. Later, she became upset once again and took about 10 gabapentin tablets. She then decided that she needed to write a pseudo suicide note to her , went to her son and told him, ?sera,? and then return to her room and continued to gradually take more gabapentin. Her son called police, the same officers returned and she was eventually brought to the emergency department for treatment. In the emergency department, the patient was noted to have a blood alcohol level of 168. She was admitted for further evaluation and treatment. Currently, the patient is now sober and denies any suicidal ideation, intent, or plan. She states that she did this because she did not feel as if her family loves her. She denies current symptoms of sad, down, or depressed mood. She d enies anhedonia. She reports some difficulty with sleep but notes a history of sleep apnea. She denies any decreased energy and vehemently denies any sense of low self-esteem hopelessness helplessness negative miss or worthlessness. She denies poor concentration. Patient denies danny, psychosis, or current anxiety. She mostly expresses some frustration with her family and not feeling appreciated. She denies any abuse of alcohol despite recent history to the contrary. PREVIOUS PSYCHIATRIC HISTORY Diagnoses-depression [id number] prior psychiatric inpatient stays. Outpatient-reports a history of therapy but no formal psychiatric treatment. Psychiatric medications have largely been provided by her primary care providers. Suicide attempts-1 prior attempt about 2 years ago. PREVIOUS MEDICATION TRIALS Paxil, Lexapro, Pristiq, bupropion, Effexor. All apparently somewhat effective but effect complicated by history of drinking in the past. SUBSTANCE USE HISTORY The patient is a former smoker. She reports trying cocaine once in college but denies any other history of drug use. The patient apparently has a significant history of alcohol use drinking up to 3 glasses of wine per night but she denies any other symptoms of alcoholism. Meds Home Medications and Allergies Home Medications Medication Instructions Recorded Confirmed Type [GUAIFENESIN ER] 2,400 - 3,600 mg PO PRN PRN #0 06/30/17 03/08/20 History [COMPLETE OMEGA] 1 cap PO QDAY #0 09/21/17 03/08/20 History [DHEA] 100 mg PO QDAY #0 09/21/17 03/08/20 History [FREE AMINOS] 1 cap PO QDAY #0 09/21/17 03/08/20 History [HUMANOFORT] 100 mg PO QDAY #0 09/21/17 03/08/20 History [IODURAL] 50 mg PO QDAY #0 09/21/17 03/08/20 History [L-TRYPTOPHAN] 1.6 mg PO QDAY #0 09/21/17 03/08/20 History [PREGNENOLONE] 100 mg PO QDAY #0 09/21/17 03/08/20 History [VITAMIN B COMPLEX] 1 tab PO QDAY #0 09/21/17 03/08/20 History bupropion HCl 150 mg tablet,12 hr 150 mg PO BID #180 tab 03/01/20 03/08/20 Rx sustained-release diphenhydramine HCl 25 mg capsule 50 mg PO BEDTIME cap 03/01/20 03/08/20 History estradiol 0.1 mg/24 hr semiweekly See Rx Instructions .ROUTE 03/01/20 03/08/20 Rx transdermal patch .COMPLEX #24 each progesterone micronized 100 mg 100 mg PO HS #90 cap 03/01/20 03/08/20 Rx capsule valacyclovir 500 mg tablet 500 mg PO BID #180 tab 03/01/20 03/08/20 Rx venlafaxine 150 mg 150 mg PO DAILY #90 cap 03/01/20 03/08/20 Rx capsule,extended release 24 hr gabapentin 100 mg PO TID 03/08/20 03/08/20 History Allergies Allergy/AdvReac Type Severity Reaction Status Date / Time cephalexin [CEPHALEXIN] AdvReac Mild HALLUCINATI Verified 07/13/18 13:50 ONS Review of Systems Review of Systems ROS: Yes All systems reviewed with the patient and are negative except as otherwise documented Exam Vital Signs (past 8 hours): - 03/08/20 12:00 03/08/20 15:10 Temperature 99.2 F 98.4 F Pulse Rate 82 83 Respiratory Rate 15 17 Blood Pressure 154/82 H 136/79 Pulse Oximetry 100 98 Oxygen Delivery Method Room Air Oxygen Flow Rate 0 Psych Other: MENTAL STATUS EXAMINATION: Appearance: The patient is a slender but well-developed and well-nourished female dressed in hospital attire and seen in her hospital room sitting her hospital bed. Behavior: The patient is calm and cooperative with the examination. Eye Contact: Eye contact is good. Speech: Speech is unimpaired with normal rate, rhythm, volume and terri. Motor Movement: There was no evidence of any psychomotor agitation or retardation. Gait: Not tested Mood: Stated mood is, ?disappointed.? Affect: Affect is generally euthymic and somewhat histrionic and dramatic. And congruent with content. Range and reactivity are normal. Thought Process: Extremely circumstantial but eventually able to get to the point of questions if directed. Thought Content: There was no suicidal or homicidal ideation, intent, or plan; and there was no evidence of a formal thought or perceptual disturbance. Attention: Attentive to interview Orientation: Oriented to person, place, time, and circumstance. Memory: Intact for interview, not formally tested. Judgement: Poor Insight: Poor Impulse Control: Poor by recent history Objective Labs Result Diagrams: 03/08/20 04:55 03/08/20 04:55 Labs: Laboratory Results - last 24 hr 03/08/20 03/08/20 03/08/20 02:15 02:15 02:15 WBC 4.6 RBC 3.57 L Hgb 12.4 Hct 37.2 MCV 104.2 H MCH 34.6 H MCHC 33.2 RDW 14.0 Plt Count 264 Neut % (Auto) 52.8 Lymph % (Auto) 21.4 L Trigg % (Auto) 16.8 H Eos % (Auto) 7.9 H Baso % (Auto) 1.1 Neut # (Auto) 2400 Lymph # (Auto) 1000 L Trigg # (Auto) 800 Eos # (Auto) 400 Baso # (Auto) 100 Sodium 140 Potassium 4.2 Chloride 106 Carbon Dioxide 24 BUN 9 Creatinine 0.82 Estimated GFR > 60.0 BUN/Creatinine Ratio 11.0 Glucose 105 Lactate 1.0 Calcium 8.7 Magnesium Total Bilirubin 0.3 Conjugated Bilirubin 0.0 Unconjugated Bilirubin 0.0 AST 51 H ALT 39 H Alkaline Phosphatase 56 Total Protein 7.4 Albumin 4.5 Globulin 2.9 Albumin/Globulin Ratio 1.6 Nasal Screen MRSA (PCR) Salicylates < 1.0 U Opiates 300ng/mL cut Ur Oxycodone Screen Urine Methadone Screen Acetaminophen < 10 L Ur Barbiturates Screen U Tricyclic Antidepress Ur Phencyclidine Scrn Ur Amphetamines Screen U Methamphetamines Scrn Ur MDMA Scrn (Ecstasy) U Benzodiazepines Scrn Urine Cocaine Screen U Marijuana (THC) Screen Ethyl Alcohol 168 H COVID-19 PCR 03/08/20 03/08/20 03/08/20 02:35 02:42 04:25 WBC RBC Hgb Hct MCV MCH MCHC RDW Plt Count Neut % (Auto) Lymph % (Auto) Trigg % (Auto) Eos % (Auto) Baso % (Auto) Neut # (Auto) Lymph # (Auto) Trigg # (Auto) Eos # (Auto) Baso # (Auto) Sodium Potassium Chloride Carbon Dioxide BUN Creatinine Estimated GFR BUN/Creatinine Ratio Glucose Lactate Calcium Magnesium Total Bilirubin Conjugated Bilirubin Unconjugated Bilirubin AST ALT Alkaline Phosphatase Total Protein Albumin Globulin Albumin/Globulin Ratio Nasal Screen MRSA (PCR) Negative for mrsa Salicylates U Opiates 300ng/mL cut Negative Ur Oxycodone Screen Negative Urine Methadone Screen Negative Acetaminophen Ur Barbiturates Screen Negative U Tricyclic Antidepress Negative Ur Phencyclidine Scrn Negative Ur Amphetamines Screen Negative U Methamphetamines Scrn Negative Ur MDMA Scrn (Ecstasy) Negative U Benzodiazepines Scrn Negative Urine Cocaine Screen Negative U Marijuana (THC) Screen Negative Ethyl Alcohol COVID-19 PCR Negative 03/08/20 03/08/20 04:55 04:55 WBC 4.8 RBC 3.67 L Hgb 12.8 Hct 38.5 MCV 104.8 H MCH 34.9 H MCHC 33.3 RDW 14.1 Plt Count 277 Neut % (Auto) 53.4 Lymph % (Auto) 22.5 L Trigg % (Auto) 15.7 H Eos % (Auto) 7.1 H Baso % (Auto) 1.3 Neut # (Auto) 2600 Lymph # (Auto) 1100 Trigg # (Auto) 800 Eos # (Auto) 300 Baso # (Auto) 100 Sodium 143 Potassium 5.0 Chloride 109 H Carbon Dioxide 29 BUN 9 Creatinine 0.71 Estimated GFR > 60.0 BUN/Creatinine Ratio 12.7 Glucose 104 Lactate Calcium 8.9 Magnesium 2.3 Total Bilirubin Conjugated Bilirubin Unconjugated Bilirubin AST ALT Alkaline Phosphatase Total Protein Albumin Globulin Albumin/Globulin Ratio Nasal Screen MRSA (PCR) Salicylates U Opiates 300ng/mL cut Ur Oxycodone Screen Urine Methadone Screen Acetaminophen Ur Barbiturates Screen U Tricyclic Antidepress Ur Phencyclidine Scrn Ur Amphetamines Screen U Methamphetamines Scrn Ur MDMA Scrn (Ecstasy) U Benzodiazepines Scrn Urine Cocaine Screen U Marijuana (THC) Screen Ethyl Alcohol COVID-19 PCR Assessment & Plan Assessment & Plan narrative: ASSESSMENT Sharon Gonzalez is a 59-year-old woman with a long history of both alcohol use di sorder and depressive symptoms and treated with multiple antidepressants in the past. She recently made an impulsive suicide attempt by taking an overdose of gabapentin but not before saying goodbye in a somewhat dramatic fashion to her family thus ensuring her rescue. She interacts in an extremely dramatic, narcissistic, and self justifying manner. She minimizes her drinking and distorts the recent history of her hospitalization as supported by other accounts of more objective observers. Her main issue appears to be alcohol use disorder, but she sees herself as and unappreciated victim of her ungrateful family. Although her overdose with gabapentin was fairly serious, she is an intelligent individual and was able to ensure her rescue. Her demeanor and presentation today are not consistent with someone who is severely depressed and experiencing suicidal ideation due to depression. I do not believe that she fulfills criteria to be hospitalized involuntarily. DIAGNOSIS Alcohol use disorder, severe Major depressive disorder by history Status post gabapentin overdose, resolving Recommendation 1. Patient is not suicidal at this time and does not fulfill criteria to be held against her will. 2. The patient has suicidal ideation can be seen as manipulative in nature and not indicative of a desire to . 3. The patient does not require psychiatric hospitalization at this time. 4. Patient may resume taking bupropion and Effexor at previous doses following discharge. 6. Discharge planning should include referral to alcohol treatment. Time Spent With Patient Time with patient: Greater than 35 minutes
--- NOTE | 2020-03-08 21:38 | PC.NURSE ---
Shift Note: Psychiatric consult done this shift and after pt was tearful and angry. Expressed that she didn't want to share any information with her family and stated that she didn't know what she would do. Resp therapy consult completed, cpap fitted and applied. Pt appears to be sleeping at this time.
[2020-03-09 01:44] VITALS: PULSE 84; RESP 16; O2SAT 98
[2020-03-09 03:00] VITALS: BP 110/52; PULSE 63; RESP 16; TEMP 36.7; O2SAT 98
[2020-03-09 07:00] VITALS: BP 112/80; PULSE 77; RESP 18; TEMP 36.9
[2020-03-09] MEDS: buPROPion SR 150 MG TAB PO (09:15)
[2020-03-09] MEDS: GABAPENTIN 100 MG CAPSULE PO (09:15)
[2020-03-09] MEDS: VENLAFAXINE HCL 100 MG TABLET 150 MG PO (09:16)
[2020-03-09] MEDS: valACYclovir 500 MG TABLET PO (09:16)
--- NOTE | 2020-03-09 09:33 | PM.DS.1 ---
History of Present Illness History of Present Illness Date Patient Seen: 03/09/20 Time Patient Seen: 09:34 Chief complaint: Overdose Narrative: As per PRADEEP Klein: Mr. felicity najera is a 59-year-old female patient with a past medical history significant for depression with a previous suicide attempt (Sep, 2017), fibromyalgia, insomnia, obstructive sleep apnea with CPAP who presents to the ER following intentional overdose. Apparently tonight please for called to the home at approximately 11:30 p.m. after the patient became upset following family discussion regarding alcohol. Reportedly the patient drinks a bottle of wine daily and consumes wine earlier tonight. Patient subsequently proceeded to take approximately 70 gabapentin 100 mg tablets between midnight and 0030. Please recall again to the house at 1:07 a.m. in response to suicide attempt. Patient states that she feels her family does not appreciate her nor all that she has done for them. She states she lost her which she is unhappy in her marriage there is no intimacy. She makes repeated statements of helplessness and hopelessness and states she is unhappy and does not want to continue living. She states frustration that her overdose was not successful, that all she wanted to was go to sleep and be done with it. Patient described 3-4 days ago having cold symptoms with runny nose and scratchy throat and mild cough but denies complaints of fevers or chills. She denies chest pain or palpitations and has no exertional dyspnea, shortness of breath or wheezing stating she runs several times weekly. She denies complaints of abdominal pain with no nausea or vomiting and has no diarrhea but does have intermittent constipation. She denies urinary symptoms of frequency urgency burning or hematuria. She endorses a history of fibromyalgia which she states she has under control with supplements. Discharge Providers Provider Date of admission: 03/08/20 03:35 Discharge Date: 03/09/20 Primary care physician: PRADEEP Talley Consults: 03/08/20 [place] [facility] [place] [facility] [employer] Stat Comment: Overdose, attempted suicide [employer] Consult: Behavioral Health Assess 03/08/20 03:42 Consult to Discharge Planning Routine Comment: 03/08/20 16:08 Consult to Physician Routine Comment: Consulting Provider: Gil Hinds Reason for consultation: suicide attempt, depression management with meds and dispo recommendations Discharge provider: Rush Reno DO Summary Hospital Course Discharge Diagnosis: 1. Attempted suicide by overdose on gabapentin, acute, present on admission, active. 2. Major depressive episode, acute, present on admission, active 3. Alcohol abuse, chronic, present on admission, stable 4. Fibromyalgia, chronic, stable 5. Obstructive sleep apnea using CPAP, chronic, stable Hospital Course: Sharon Gonzalez is a 59-year-old female with a past medical history of alcohol abuse, major depressive disorder, fibromyalgia, obstructive sleep apnea who presented after intentionally ingesting gabapentin in a reported suicide attempt. She did develop mild symptoms of withdrawal likely from both her chronic alcohol use and intentional ingestion of gabapentin with anxiety, tremulousness, and mildly elevated blood pressures. By the following morning she had much improved. She was seen by Psychiatry who felt that the patient did not need inpatient treatment and that she no longer held suicidal ideations. She was discharged home at that time without medication changes. She was provided with resources for alcohol cessation. She will need to follow-up with her primary care provider for further counseling referral, she was also informed about alternatives given lack of availability for counseling in the area including text based psychotherapy. Time Spent with Patient Time spent: Greater than 30 minutes Exam Vital Signs (past 8 hours): - 03/09/20 01:44 03/09/20 03:00 03/09/20 07:00 Temperature 98.1 F 98.4 F Pulse Rate 84 63 77 Respiratory Rate 16 16 18 Blood Pressure 110/52 L 112/80 Pulse Oximetry 98 98 Oxygen Delivery Method BiPAP Oxygen Flow Rate 0 Narrative Exam Narrative: GENERAL APPEARANCE: well developed, well nourished, in no acute distress. HEENT: Normocephalic, PERRLA, conjunctiva mildly injected, EOMs intact bilateral nystagmus, no sinus, mucous membranes are moist and pink without lesions or exudate. NECK/THYROID: neck supple, no JVD, no carotid bruit, no thyromegaly, trachea midline. LYMPH NODES: no cervical or supraclavicular lymphadenopathy. SKIN: [place], warm and dry, no visible lesions, rashes, ulcerations or petechiae. HEART: regular rate and rhythm, S1-S2, no murmur, no rubs or gallops, brisk capillary refill, no edema LUNGS: clear to auscultation bilaterally, no coarseness crackles or wheezing, no cough present CHEST: Symmetrical movement, no accessory muscle use, good tidal volume. ABDOMEN: Soft, no distention, no abdominal tenderness, no guarding or peritoneal signs, no organomegaly, no flank or suprapubic tenderness, active bowel tones. BACK: Normal curvature, nontender to palpation, no CVA tenderness on percussion EXTREMITIES: moves all extremities, strength is 5/5 and symmetrical, no deformities or joint effusions. NEUROLOGIC: AAO x4, no focal neurologic deficits, cranial nerves II-XII grossly intact, sensation intact to light touch PSYCH: Hyperverbal, pressured speech, emotionally labile, good eye contact, tangential thought process, cooperative, stable behavior Objective Labs Result Diagrams: 03/08/20 04:55 03/08/20 04:55 Discharge Plan Discharge Plan Patient Disposition: Home Provider Discharge Comment: You were admitted to the hospital after intentionally taking gabapentin. No medication changes are recommended. Please follow up with your pcp as soon as possible. Behavioral health and counseling services are limited currently. If you're unable to get in there are other options including text based therapy. You were provided with resources for alcohol cessation. Discharge orders & Medications Prescriptions: Continued [GUAIFENESIN ER] 2,400 - 3,600 mg PO PRN PRN (Reason: fibromyalgia) Qty: 0 RF: 0 [COMPLETE OMEGA] 1 cap PO QDAY Qty: 0 RF: 0 [DHEA] 100 mg PO QDAY Qty: 0 RF: 0 [FREE AMINOS] 1 cap PO QDAY Qty: 0 RF: 0 [HUMANOFORT] 100 mg PO QDAY Qty: 0 RF: 0 [IODURAL] 50 mg PO QDAY Qty: 0 RF: 0 [L-TRYPTOPHAN] 1.6 mg PO QDAY Qty: 0 RF: 0 [PREGNENOLONE] 100 mg PO QDAY Qty: 0 RF: 0 [VITAMIN B COMPLEX] 1 tab PO QDAY Qty: 0 RF: 0 diphenhydramine HCl [Benadryl] 25 mg capsule 50 mg PO BEDTIME RF: 0 bupropion HCl [Wellbutrin SR] 150 mg tablet sustained-release 12 hr 150 mg PO BID Qty: 180 RF: 3 estradiol [Tracie] 0.1 mg/24 hr patch semiweekly See Rx Instructions .ROUTE .COMPLEX Qty: 24 RF: 3 progesterone micronized 100 mg capsule 100 mg PO HS Qty: 90 RF: 3 valacyclovir 500 mg tablet 500 mg PO BID Qty: 180 RF: 3 venlafaxine 150 mg capsule,extended release 24hr 150 mg PO DAILY Qty: 90 RF: 3 gabapentin 100 mg capsule 100 mg PO TID RF: 0 Follow up/Referrals: Melany Blanco ARNP [Primary Care Provider] - 03/13/20 2:00 pm (appt:03/13 @ 2:00 w/s.ruslan salazar please arrive 15 minutes prior to your scheduled appointment time) Diet/Activity/Treatments Diet: Diet as Tolerated Activity: As tolerated Visit Report/Discharge Packet Instructions: DI for Alcohol Use Disorder, How to Create a Suicide Prevention Safety Plan Visit Report Forms: Patient Portal/API, Stroke Signs & Symptoms Discharge Data Primary Care Provider: Melany Blanco Attending Provider: Rush Shelton Admit Date/Time: 03/08/20 03:35 Discharges patient from system. Discharge Date/Time: 03/09/20 11:38 Quality VTE Deep Vein Thrombosis/Pulmonary Embolism Present on Admission: No
--- NOTE | 2020-03-09 11:24 | PC.NURSE ---
Addendum entered by Aníbal Mcleod R.N. 03/09/20 11:36: Pt declined w/c transport to exit. All belongings in had- ambulated to exit with [employer]. No apparent distress. Original Note: Reviewed d/c packet and educational materials with pt. Reviewed medication regimen, doses, timing, last dose given, next dose due. Reviewed educational materials regarding alcohol cessation as well as suicide prevention. Reviewed f/u appt and scheduling. Instructed pt to seek emergency medical treatment for continued/worsening symptoms. Pt verbalizes understanding of teaching and states she has no further questions. She declined in depth etoh education due to I'm not an alcoholic. Removed PIV with cath tip intact. Pt dressed herself. Pt was given her clothing, wallet, and home medications. She is awaiting her to pick her up.
--- NOTE | 2020-03-09 12:35 | CM.SWNOTE ---
TRANSPORTATION PLANNING ENGINEER Note / DC Note Reviewed Dr Hinds's consult note this AM and reviewed plan w/ Dr Reno- Inpatient psychiatric unit is not recommended for this 59 yo female. ETOH resources and counseling resources are recommended upon DC After DC order was in place, patient was dressed and ready go quickly and denied the need for any supportive resources P: DC home, patient walked from the acute care floor independently, resources refused JW
== END 2020-03-09 11:38 | disposition home or self-care (01) ==
LOC: ED 02:18 → AC 03:36 → ICU 04:20
PROVIDERS: Admitting Provider Nurse Practitioner Adult Health; Emergency Provider Emergency Medicine; Family Provider Physician Assistant; PCP Nurse Practitioner; Referring Provider Emergency Medicine; Visit Provider Nurse Practitioner Adult Health
DX: T42.6X2A Poisoning by other antiepileptic and sedative-hypnotic drugs, intentional self-harm, initial encounter (principal); F32.9 Major depressive disorder, single episode, unspecified; M79.7 Fibromyalgia; G47.00 Insomnia, unspecified; G47.33 Obstructive sleep apnea (adult) (pediatric); Z87.891 Personal history of nicotine dependence; F10.10 Alcohol abuse, uncomplicated; Y90.6 Blood alcohol level of 120-199 mg/100 ml; Z11.59 Encounter for screening for other viral diseases
CPT/HCPCS: 36415; 80048; 80053; 80076; 80305; 80320; 80329; 83605; 83735; 85025; 87635; 87797; 90792; 93005; 93010; 94660; 94762; 96360; 96361; 99284; G0378; A9270; G0480

== ENCOUNTER → 2021-03-22 10:28 | Outpatient (CLI) | payer OTHER, SELFPAY ==
[2021-03-06 10:09] VITALS: BMI 21.6
[2021-03-22 12:20] LABS: Hematocrit 43.2 % (36-46); Hemoglobin 14.4 g/dL (12.0-16.0); Mean Corpuscular HGB Conc 33.3 % (30-36); Mean Corpuscular Hemoglobin 34.4 PG (26-34); Mean Corpuscular Volume 103.3 fL (80-100); Platelet Count 246 X10^3/uL (150-400); Red Blood Cell Count 4.18 X10^6/uL (4.0-5.2); Red Cell Distribution Width 14.3 % (11.6-14.8); White Blood Cell Count 3.6 X10^3/uL (4.5-11.0)
[2021-03-22 12:43] LABS: Alanine Aminotransferase 23 IU/L (<35); Albumin 4.7 g/dL (3.5-5.0); Albumin Globulin Ratio 1.8 (1.0-2.8); Alkaline Phosphatase 78 U/L (38-126); Aspartate Aminotransferase 28 IU/L (14-36); BUN Creatinine Ratio 11.4 (6-22); Bilirubin Total 0.5 mg/dL (0.2-1.3); Blood Urea Nitrogen 12 mg/dL (7-17); Calcium 9.2 mg/dL (8.4-10.2); Carbon Dioxide 19 mmol/L (22-32); Chloride 110 mmol/L (98-107); Cholesterol 246 mg/dL (140-199); Estimated Glomerular Filt Rate 53.1 mL/min (>60); Globulin 2.6 g/dL (1.7-4.1); Glucose 83 mg/dL (80-110); HEMOLYSIS < 15 (0-50); Potassium 4.4 mmol/L (3.4-5.1); Sodium 138 mmol/L (137-145); Total Protein 7.3 g/dL (6.3-8.2); Triglycerides 108 mg/dL (35-150)
[2021-03-22 13:14] LABS: Thyroid Stimulating Hormone 2.16 uIU/mL (0.47-4.68)
[2021-03-22 13:31] LABS: Hep C Virus Ab w/Reflex Quant NEGATIVE s/c (NEGATIVE)
[2021-03-22 18:31] LABS: HDL Cholesterol 138 mg/dL (40-60); LDL Cholesterol Calculated 86 mg/dL (<100)
== END ==
PROVIDERS: Family Provider Physician Assistant; PCP Nurse Practitioner; Referring Provider Nurse Practitioner; Visit Provider Nurse Practitioner
DX: Z00.00 Encounter for general adult medical examination without abnormal findings (principal); F33.42 Major depressive disorder, recurrent, in full remission; F41.9 Anxiety disorder, unspecified; G47.09 Other insomnia; M79.7 Fibromyalgia; Z11.59 Encounter for screening for other viral diseases; Z91.89 Other specified personal risk factors, not elsewhere classified
CPT/HCPCS: 36415; 80053; 80061; 84439; 84443; 84481; 85027; 86803

== ENCOUNTER → 2021-09-10 13:30 | Outpatient (CLI) | payer OTHER, SELFPAY ==
[2021-03-06 10:09] VITALS: BMI 21.6
[2021-09-10 14:33] LABS: Add Manual Diff / Slide Review NO; Basophils Absolute Auto 100 /uL (0-100); Basophils Percent Auto 1.3 % (0-2); Eosinophils Absolute Auto 300 /uL (0-450); Eosinophils Percent Auto 5.1 % (2-4); Hematocrit 38.8 % (36-46); Hemoglobin 12.7 g/dL (12.0-16.0); Lymphocytes Absolute Auto 1000 /uL (1100-4500); Lymphocytes Percent Auto 15.9 % (25-40); Mean Corpuscular HGB Conc 32.8 % (30-36); Mean Corpuscular Hemoglobin 32.4 PG (26-34); Mean Corpuscular Volume 98.8 fL (80-100); Monocytes Absolute Auto 800 /uL (0-900); Monocytes Percent Auto 13.5 % (3-14); Neutrophils Absolute Auto 3900 /uL (1500-7000); Neutrophils Percent Auto 64.2 % (50-75); Platelet Count 279 X10^3/uL (150-400); Red Blood Cell Count 3.93 X10^6/uL (4.0-5.2); Red Cell Distribution Width 14.4 % (11.6-14.8); White Blood Cell Count 6.1 X10^3/uL (4.5-11.0)
[2021-09-10 15:23] LABS: Alanine Aminotransferase 20 IU/L (<35); Albumin 4.5 g/dL (3.5-5.0); Albumin Globulin Ratio 1.5 (1.0-2.8); Alkaline Phosphatase 84 U/L (38-126); Aspartate Aminotransferase 24 IU/L (14-36); BUN Creatinine Ratio 14.9 (6-22); Bilirubin Total 0.7 mg/dL (0.2-1.3); Blood Urea Nitrogen 13 mg/dL (7-17); Calcium 8.4 mg/dL (8.4-10.2); Carbon Dioxide 20 mmol/L (22-32); Chloride 110 mmol/L (98-107); Estimated Glomerular Filt Rate > 60 mL/min (>60); Glucose 110 mg/dL (80-110); HEMOLYSIS < 15 (0-50); Potassium 4.4 mmol/L (3.4-5.1); Sodium 139 mmol/L (137-145); Total Protein 7.5 g/dL (6.3-8.2)
[2021-09-10 15:38] LABS: Free T3, Triiodothyronine Free 3.16 pg/mL (2.77-5.27); Free T4, Direct Thyroxine 0.85 ng/dL (0.78-2.19)
[2021-09-10 15:52] LABS: Thyroid Stimulating Hormone 1.96 uIU/mL (0.47-4.68)
== END ==
PROVIDERS: Family Provider Physician Assistant; PCP Nurse Practitioner; Referring Provider Nurse Practitioner; Visit Provider Nurse Practitioner
DX: D72.819 Decreased white blood cell count, unspecified (principal); E87.8 Other disorders of electrolyte and fluid balance, not elsewhere classified; R79.89 Other specified abnormal findings of blood chemistry
CPT/HCPCS: 36415; 80053; 84439; 84443; 84481; 85025

== ENCOUNTER → 2022-07-14 11:11 | Outpatient (CLI) | payer OTHER, SELFPAY ==
[2021-03-06 10:09] VITALS: BMI 21.6
[2022-07-14 11:34] LABS: Hematocrit 39.8 % (36-46); Hemoglobin 13.4 g/dL (12.0-16.0); Mean Corpuscular HGB Conc 33.7 % (30-36); Mean Corpuscular Hemoglobin 34.9 PG (26-34); Mean Corpuscular Volume 103.5 fL (80-100); Platelet Count 272 X10^3/uL (150-400); Red Blood Cell Count 3.85 X10^6/uL (4.0-5.2); Red Cell Distribution Width 13.4 % (11.6-14.8); White Blood Cell Count 4.7 X10^3/uL (4.5-11.0)
[2022-07-14 12:08] LABS: Alanine Aminotransferase 29 IU/L (<35); Albumin 4.6 g/dL (3.5-5.0); Albumin Globulin Ratio 1.5 (1.0-2.8); Alkaline Phosphatase 74 U/L (38-126); Aspartate Aminotransferase 34 IU/L (14-36); BUN Creatinine Ratio 17.4 (6-22); Bilirubin Total 0.7 mg/dL (0.2-1.3); Blood Urea Nitrogen 15 mg/dL (7-17); Carbon Dioxide 26 mmol/L (22-32); Chloride 100 mmol/L (98-107); Cholesterol 270 mg/dL (140-199); Estimated Glomerular Filt Rate > 60 mL/min (>60); Glucose 96 mg/dL (80-110); HEMOLYSIS < 15 (0-50); Potassium 4.6 mmol/L (3.4-5.1); Sodium 135 mmol/L (137-145); Total Protein 7.6 g/dL (6.3-8.2); Triglycerides 81 mg/dL (35-150)
[2022-07-14 12:22] LABS: LDL Cholesterol Calculated 122 mg/dL (<100)
[2022-07-14 12:23] LABS: HDL Cholesterol 132 mg/dL (40-60)
[2022-07-14 12:36] LABS: Free T3, Triiodothyronine Free 3.07 pg/mL (2.77-5.27)
[2022-07-14 12:50] LABS: Thyroid Stimulating Hormone 2.09 uIU/mL (0.47-4.68)
[2022-07-14 16:22] LABS: Microalbumin Urine Random 2.6 mg/dL (0-1.6)
[2022-07-14 16:26] LABS: Creatinine Urine Random 115.8 mg/dL; Microalbumi Creatinin Ratio Ur 22.4 ug/mg CR (<30)
[2022-07-14 17:11] LABS: Hep C Virus Ab w/Reflex Quant NEGATIVE s/c (NEGATIVE)
== END ==
PROVIDERS: Family Provider Physician Assistant; PCP Nurse Practitioner; Referring Provider Nurse Practitioner; Visit Provider Nurse Practitioner
DX: Z00.00 Encounter for general adult medical examination without abnormal findings (principal); Z11.59 Encounter for screening for other viral diseases
CPT/HCPCS: 36415; 80053; 80061; 82043; 82570; 84439; 84443; 84481; 85027; 86803

== ENCOUNTER → 2022-07-31 17:41 | Outpatient (ROUT) | payer OTHER, SELFPAY ==
[2021-03-06 10:09] VITALS: BMI 21.6
[2022-08-04 08:26] LABS: Fecal Immunochemical Test Negative (Negative)
== END ==
PROVIDERS: Family Provider Physician Assistant; PCP Nurse Practitioner; Visit Provider Nurse Practitioner
DX: Z00.00 Encounter for general adult medical examination without abnormal findings (principal); Z12.11 Encounter for screening for malignant neoplasm of colon
CPT/HCPCS: 82274

== ENCOUNTER → 2023-02-02 11:56 | Outpatient (CLI) | payer OTHER, SELFPAY ==
[2021-03-06 10:09] VITALS: BMI 21.6
--- NOTE | 2023-02-02 11:59 | DI.RAD.S_ITS ---
PROCEDURE: XR KNEE RT 3V INDICATIONS: knee pain and swelling TECHNIQUE: 3 views of the knee were acquired. COMPARISON: None. FINDINGS: Bones: No fractures or dislocations. No suspicious bony lesions. Soft tissues: No joint effusion. No suspicious soft tissue calcifications. IMPRESSION: Unremarkable right knee radiographs Approved by: Ernesto Mejia M.D. on 02/02/2023 at 19:04
--- NOTE | 2023-02-02 11:59 | DI.RAD.S_ITS ---
PROCEDURE: XR KNEE LT 3V INDICATIONS: knee pain with swelling TECHNIQUE: 3 views of the knee were acquired. COMPARISON: None. FINDINGS: Bones: No fractures or dislocations. No suspicious bony lesions. Stippled calcifications noted in both meniscus Soft tissues: No joint effusion. No suspicious soft tissue calcifications. IMPRESSION: Chondrocalcinosis without joint space narrowing Approved by: Ernesto Mejia M.D. on 02/02/2023 at 18:55
[2023-02-02 12:51] LABS: Add Manual Diff / Slide Review NO; Basophils Absolute Auto 100 /uL (0-100); Basophils Percent Auto 0.9 % (0-2); Eosinophils Absolute Auto 200 /uL (0-450); Eosinophils Percent Auto 2.8 % (2-4); Hemoglobin 13.1 g/dL (12.0-16.0); Lymphocytes Absolute Auto 1200 /uL (1100-4500); Lymphocytes Percent Auto 20.6 % (25-40); Mean Corpuscular HGB Conc 34.6 % (30-36); Mean Corpuscular Hemoglobin 36.3 PG (26-34); Monocytes Absolute Auto 900 /uL (0-900); Monocytes Percent Auto 14.6 % (3-14); Neutrophils Absolute Auto 3600 /uL (1500-7000); Neutrophils Percent Auto 61.1 % (50-75); Platelet Count 264 X10^3/uL (150-400); Red Blood Cell Count 3.62 X10^6/uL (4.0-5.2); Red Cell Distribution Width 13.4 % (11.6-14.8); White Blood Cell Count 5.9 X10^3/uL (4.5-11.0)
[2023-02-02 13:05] LABS: Alanine Aminotransferase 34 IU/L (<35); Albumin 4.7 g/dL (3.5-5.0); Albumin Globulin Ratio 1.6 (1.0-2.8); Alkaline Phosphatase 50 U/L (38-126); Aspartate Aminotransferase 38 IU/L (14-36); BUN Creatinine Ratio 12.9 (6-22); Bilirubin Total 0.7 mg/dL (0.2-1.3); Blood Urea Nitrogen 11 mg/dL (7-17); Carbon Dioxide 21 mmol/L (22-32); Chloride 101 mmol/L (98-107); Estimated Glomerular Filt Rate > 60 mL/min (>60); Globulin 2.9 g/dL (1.7-4.1); Glucose 86 mg/dL (80-110); HEMOLYSIS 20 (0-50); Sodium 134 mmol/L (137-145); Total Protein 7.6 g/dL (6.3-8.2)
[2023-02-02 13:09] LABS: HEMOLYSIS 31 (0-50); Iron 124 ug/dL (37-170)
[2023-02-02 13:24] LABS: Percent Iron Saturation 49 % (15-50); Total Iron Binding Capacity 252 ug/dL (265-497); Transferrin 183 mg/dL (206-381)
[2023-02-02 13:27] LABS: Free T3, Triiodothyronine Free 4.25 pg/mL (2.77-5.27); Free T4, Direct Thyroxine 0.94 ng/dL (0.78-2.19)
[2023-02-02 13:41] LABS: Thyroid Stimulating Hormone 1.76 uIU/mL (0.47-4.68)
[2023-02-02 18:22] LABS: Ferritin 52 ng/mL (11-264)
[2023-02-03 06:39] LABS: Thyroid Peroxidase Antibodies 11 IU/mL (0-34)
== END ==
PROVIDERS: Family Provider Physician Assistant; PCP Nurse Practitioner; Referring Provider Family Medicine; Visit Provider Family Medicine
DX: M11.262 Other chondrocalcinosis, left knee (principal); M25.569 Pain in unspecified knee; D50.9 Iron deficiency anemia, unspecified; F41.9 Anxiety disorder, unspecified; R53.83 Other fatigue; E03.9 Hypothyroidism, unspecified; F32.9 Major depressive disorder, single episode, unspecified; R63.5 Abnormal weight gain
CPT/HCPCS: 36415; 73562; 80053; 82728; 83540; 83550; 84439; 84443; 84481; 85025; 86376

== ENCOUNTER → 2023-02-10 15:43 | Outpatient (CLI) | payer OTHER, SELFPAY ==
[2021-03-06 10:09] VITALS: BMI 21.6
[2023-02-10 17:25] LABS: Vitamin B12 Reflex MMA if <400 > 1000 pg/mL (239-931)
== END ==
PROVIDERS: Family Provider Physician Assistant; PCP Nurse Practitioner; Referring Provider Family Medicine; Visit Provider Family Medicine
DX: D75.89 Other specified diseases of blood and blood-forming organs (principal)
CPT/HCPCS: 36415; 82607

== ENCOUNTER → 2023-09-22 13:07 | Outpatient (CLI) | payer OTHER, SELFPAY ==
[2021-03-06 10:09] VITALS: BMI 21.6
--- NOTE | 2023-09-22 13:10 | DI.RAD.S_ITS ---
PROCEDURE: XR LUMBAR SPINE MIN 4V INDICATIONS: LOW BACK PAIN TECHNIQUE: 5 views of the lumbar spine were acquired, including bilateral oblique views. COMPARISON: None. FINDINGS: Bones: 5 nonrib-bearing vertebrae are present. There is normal bony alignment. No vertebral body compression fractures. No suspicious bony lesions. Mild disc height loss at L1-2, L3-4, L4-5. Facet arthrosis L4-5 and L5-S1. Soft tissues: Overlying bowel gas pattern is normal. No suspicious soft tissue calcifications. Oblique images: No pars defects. IMPRESSION: Mild, multilevel degenerative disc disease and lower lumbar facet arthrosis. Dictated by: Gil Valencia M.D. on 09/22/2023 at 14:06 Approved by: Gil Valencia M.D. on 09/22/2023 at 14:06
== END ==
PROVIDERS: Family Provider Physician Assistant; PCP Nurse Practitioner; Referring Provider Anesthesiology; Visit Provider Anesthesiology
DX: M47.816 Spondylosis without myelopathy or radiculopathy, lumbar region (principal); M47.817 Spondylosis without myelopathy or radiculopathy, lumbosacral region; M51.36 Other intervertebral disc degeneration, lumbar region; M51.37 Other intervertebral disc degeneration, lumbosacral region; M54.50 Low back pain, unspecified
CPT/HCPCS: 72110

== ENCOUNTER → 2024-01-20 11:54 | Outpatient (CLI) | payer OTHER, SELFPAY ==
[2021-03-06 10:09] VITALS: BMI 21.6
[2024-01-20 12:39] LABS: Add Manual Diff / Slide Review NO; Basophils Absolute Auto 0 /uL (0-100); Basophils Percent Auto 0.6 % (0-2); Eosinophils Absolute Auto 200 /uL (0-450); Eosinophils Percent Auto 4.3 % (2-4); Hematocrit 40.7 % (36-46); Hemoglobin 13.5 g/dL (12.0-16.0); Lymphocytes Absolute Auto 1300 /uL (1100-4500); Lymphocytes Percent Auto 23.4 % (25-40); Mean Corpuscular HGB Conc 33.1 % (30-36); Mean Corpuscular Hemoglobin 33.7 PG (26-34); Mean Corpuscular Volume 101.8 fL (80-100); Monocytes Absolute Auto 700 /uL (0-900); Monocytes Percent Auto 12.4 % (3-14); Neutrophils Absolute Auto 3400 /uL (1500-7000); Neutrophils Percent Auto 59.3 % (50-75); Platelet Count 310 X10^3/uL (150-400); Red Cell Distribution Width 13.2 % (11.6-14.8); White Blood Cell Count 5.8 X10^3/uL (4.5-11.0)
[2024-01-20 13:25] LABS: Alanine Aminotransferase 26 IU/L (<35); Albumin 4.3 g/dL (3.5-5.0); Albumin Globulin Ratio 1.5 (1.0-2.8); Alkaline Phosphatase 64 U/L (38-126); Aspartate Aminotransferase 31 IU/L (14-36); BUN Creatinine Ratio 15.7 (6-22); Bilirubin Total 0.5 mg/dL (0.2-1.3); Blood Urea Nitrogen 11 mg/dL (7-17); Calcium 9.6 mg/dL (8.4-10.2); Carbon Dioxide 25 mmol/L (22-32); Chloride 104 mmol/L (98-107); Cholesterol 251 mg/dL (140-199); Estimated Glomerular Filt Rate > 60 mL/min (>60); Globulin 2.9 g/dL (1.7-4.1); Glucose 85 mg/dL (80-110); HDL Cholesterol 88 mg/dL (40-60); HEMOLYSIS < 15 (0-50); LDL Cholesterol Calculated 137 mg/dL (<100); Potassium 4.3 mmol/L (3.4-5.1); Sodium 136 mmol/L (137-145); Total Protein 7.2 g/dL (6.3-8.2); Triglycerides 130 mg/dL (35-150)
[2024-01-20 13:45] LABS: Microalbumin Urine Random < 0.6 mg/dL (0-1.6)
[2024-01-20 17:49] LABS: HEMOLYSIS < 15 (0-50); Iron 74 ug/dL (37-170)
[2024-01-20 18:07] LABS: Percent Iron Saturation 30 % (15-50); Total Iron Binding Capacity 243 ug/dL (265-497); Transferrin 197 mg/dL (206-381)
[2024-01-20 19:01] LABS: Folate 15.4 ng/mL (2.76-20.0); Vitamin B12 942 pg/mL (239-931)
== END ==
PROVIDERS: Family Provider Physician Assistant; PCP Nurse Practitioner; Referring Provider Nurse Practitioner; Visit Provider Nurse Practitioner
DX: D75.89 Other specified diseases of blood and blood-forming organs (principal); E03.9 Hypothyroidism, unspecified; E61.1 Iron deficiency; R53.82 Chronic fatigue, unspecified; F41.9 Anxiety disorder, unspecified; D64.9 Anemia, unspecified; F33.42 Major depressive disorder, recurrent, in full remission
CPT/HCPCS: 36415; 80053; 80061; 82043; 82570; 82607; 82746; 83540; 83550; 85025

== ENCOUNTER → 2024-01-27 11:29 | Outpatient (CLI) | payer OTHER, SELFPAY ==
[2021-03-06 10:09] VITALS: BMI 21.6
== END ==
PROVIDERS: Family Provider Physician Assistant; PCP Nurse Practitioner; Referring Provider Nurse Practitioner; Visit Provider Nurse Practitioner
DX: E03.9 Hypothyroidism, unspecified (principal)
CPT/HCPCS: 36415; 84443